=== PATIENT | female | born 1975 | race Caucasian/White ===

== ENCOUNTER 2016-07-16 02:38 | Emergency (ER) | payer MEDICAID ==
[~2016-07-16] VITALS: Ht 144.8 cm; Wt 68.0 kg
[~2016-07-16 02:38] MED LIST: CIPR500T94 PO; TRAM-29 PO
[2016-07-16 03:50] VITALS: BP 134/78
[2016-07-16] MEDS ORDERED: HYDROCODONE/APAP 5/325MG TABLET. PO ONE (04:30)
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
[2016-07-16] MEDS ORDERED: TRAM-29 PO (04:50)
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
== END 2016-07-16 05:25 | disposition home or self-care (01) ==
LOC: ER 02:38
DX: S00.83XA Contusion of other part of head, initial encounter (principal); M54.2 Cervicalgia; I10 Essential (primary) hypertension; Z88.5 Allergy status to narcotic agent; Z88.8 Allergy status to other drugs, medicaments and biological substances; Z88.6 Allergy status to analgesic agent; V49.50XA Passenger injured in collision with unspecified motor vehicles in traffic accident, initial encounter; Y93.89 Activity, other specified; Y92.410 Unspecified street and highway as the place of occurrence of the external cause; Y99.8 Other external cause status
CPT/HCPCS: 70486; 99284

== ENCOUNTER 2016-09-08 09:38 | Emergency (ER) | payer SELFPAY ==
[~2016-09-08] VITALS: Ht 149.9 cm; Wt 68.0 kg
[2016-09-08 10:04] VITALS: BP 129/61
[2016-09-08] MEDS ORDERED: diphenhydrAMINE HCL 25 MG CAPSULE PO ONE (10:45)
[2016-09-08] MEDS ORDERED: TRAMADOL 50 MG TABLET. PO ONE (11:00)
--- NOTE | 2016-09-08 11:04 | RAD ---
Right foot, 3 views, 09/08/2016: History: Pain, toenail injury No fracture or destructive bony lesion is seen. There is a small inferior calcaneal spur. There is mild subcutaneous edema about the foot. IMPRESSION: No acute bony abnormality is detected.
--- NOTE | 2016-09-08 11:52 | PHYS DOC ---
Past Medical History Past Medical History: No Pertinent History Past Surgical History: Cholecystectomy, Colectomy, Tonsillectomy, Tubal ligation Alcohol Use: None Drug Use: None Adult General Chief Complaint Chief Complaint: TOE PROBLEM HPI HPI Patient is a 41 year old female with no significant medical history who presents with right middle toe pain. Patient states yesterday her right middle toe nail got caught up in her pants and was amputated, no bleeding in the Ed. Review of Systems Review of Systems Constitutional: Denies fever or chills [] Eyes: Denies change in visual acuity, redness, or eye pain [] Musculoskeletal: Right middle toe pain Integument: Denies rash or skin lesions [] Neurologic: Denies headache, focal weakness or sensory changes [] Endocrine: Denies polyuria or polydipsia [] Current Medications Current Medications Current Medications Medications (Trade) Dose Ordered Sig/Aishwarya Start Time Stop Time Status Last Admin Dose Admin Diphenhydramine HCl (Benadryl) 25 mg 1X ONCE 09/08/16 10:45 09/08/16 10:46 DC 09/08/16 10:54 25 MG Tramadol HCl (Ultram) 50 mg 1X ONCE 09/08/16 11:00 09/08/16 11:01 DC 09/08/16 10:54 50 MG Allergies Allergies Allergies Coded Allergies Type Severity Reaction Last Updated Verified NSAIDS (Non-Steroidal Anti-Inflamma Allergy Intermediate hives 06/18/16 Yes aspirin Allergy Intermediate rash 06/18/16 Yes ketorolac Allergy Intermediate rash 06/18/16 Yes morphine Allergy Intermediate hives 06/18/16 Yes Physical Exam Physical Exam Constitutional: Well developed, well nourished, no acute distress, non-toxic appearance. [] HENT: Normocephalic, atraumatic, bilateral external ears normal, oropharynx moist, no oral exudates, nose normal. [] Skin: Warm, dry, no erythema, no rash. [] Back: No tenderness, no CVA tenderness. [] Extremities: Right middle toe nail is amputated. There is no bleeding to the area. There is bruising along the right middle toe. No tenderness on palpation of the right middle toe. Full range of motion to the right middle toe. +2 right pedal pulse. Cap refill less than 2 seconds the right lower extremity. Sensation intact to the right lower extremity. Neurologic: Alert and oriented X 3, normal motor function, normal sensory function, no focal deficits noted. [] Psychologic: Affect normal, judgement normal, mood normal. [] Current Patient Data Vital Signs Vital Signs Date Time Temp Pulse Resp B/P Pulse Ox O2 Delivery O2 Flow Rate FiO2 09/08/16 10:54 18 Room Air 09/08/16 10:04 98.9 96 100 98.9 EKG EKG [] Radiology/Procedures Radiology/Procedures [] Course & Med Decision Making Course & Med Decision Making Pertinent Labs and Imaging studies reviewed. (See chart for details) Patient is in the ED with right middle toe pain as well as amputation of the right middle toenail. This occurred while she was getting paints on and the toenail got caught in her pants Right foot x-rays interpreted by radiologist are negative for any acute findings. Patient was discharged with instructions to take OTC pain relievers. Follow-up with orthopedic doctor in one week. Informed that the toenail might not grow back. Dragon Disclaimer Dragon Disclaimer This electronic medical record was generated, in whole or in part, using a voice recognition dictation system. Departure Departure Impression: Primary Impression: Nail avulsion, toe Disposition: HOME, SELF-CARE Condition: STABLE Referrals: NO PCP (PCP) ISIDORO WARNER MD You need to call the orhopedic doctor in one week if pain continues Patient Instructions: Toe Injuries and Amputations Additional Instructions: You were seen for for right middle toenail amputation. This nail may not grow back. Keep the area clean and dry. Follow-up with the provided doctor or your own doctor in one week. Problem Qualifiers Primary Impression: Nail avulsion, toe Encounter type: initial encounter Qualified Code: S91.209A - Unspecified open wound of unspecified toe(s) with damage to nail, initial encounter LUCILA [employer] O[employer]ATOR Sep 08, 2016 11:52
== END 2016-09-08 12:04 | disposition home or self-care (01) ==
LOC: ER 09:38
DX: S91.204A Unspecified open wound of right lesser toe(s) with damage to nail, initial encounter (principal); Z88.6 Allergy status to analgesic agent; Z88.5 Allergy status to narcotic agent; W23.0XXA Caught, crushed, jammed, or pinched between moving objects, initial encounter; Y93.89 Activity, other specified; Y92.89 Other specified places as the place of occurrence of the external cause; Y99.8 Other external cause status
CPT/HCPCS: 73630; 99284; Q0163

== ENCOUNTER 2017-07-09 22:57 | Emergency (ER) | payer MEDICAID | END 2017-07-09 23:41 | disposition home or self-care (01) | LOC: ER 22:57 | DX: K08.89 Other specified disorders of teeth and supporting structures (principal); Z90.49 Acquired absence of other specified parts of digestive tract; Z98.51 Tubal ligation status; Z88.6 Allergy status to analgesic agent; Z88.5 Allergy status to narcotic agent; Z88.8 Allergy status to other drugs, medicaments and biological substances | CPT/HCPCS: 99283 ==